=== PATIENT | male | born 1955 | race Caucasian/White ===

== ENCOUNTER 2020-08-20 10:03 | Emergency (ER) | payer MEDICARE, OTHER ==
[~2020-08-20] VITALS: Ht 180.3 cm; Wt 151.0 kg
--- NOTE | 2020-08-20 12:14 | NUR ---
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
[2020-08-20 15:07] LABS: HCT (SEDRATE) 49.2 % (39.2-51.8)
[2020-08-20 15:24] VITALS: BP 160/91
== END 2020-08-20 15:27 | disposition home or self-care (01) ==
LOC: ED 14:03
DX: H53.131 Sudden visual loss, right eye (principal); E11.9 Type 2 diabetes mellitus without complications; I10 Essential (primary) hypertension; Z87.891 Personal history of nicotine dependence
CPT/HCPCS: 36415; 85651; 86140; 99283